=== PATIENT | female | born 1975 | race Hispanic/Latino ===

== ENCOUNTER 2024-05-21 16:06 | Emergency (ER) | payer OTHER ==
[~2024-05-21] VITALS: Ht 165.1 cm; Wt 79.4 kg
[2024-05-21] MEDS ORDERED: IOHEXOL-350 75 ML VIAL IV ONE (16:35)
[2024-05-21] MEDS: ONDANSETRON 4MG INJ IVP ONE (16:50)
[2024-05-21] MEDS: 0.9%NACL 1000ML 1,000 ML IV ONE (16:50)
[2024-05-21] MEDS: morPHINE 4 MG SYG IVP ONE (16:50)
[2024-05-21 16:51] LABS: BASOPHILS # (AUTO) 0.02 K/uL (0.00-0.20); BASOPHILS % (AUTO) 0.2 % (0.0-5.0); EOSINOPHILS # (AUTO) 0.01 K/uL (0.00-0.70); EOSINOPHILS % (AUTO) 0.1 % (0.0-8.0); HEMATOCRIT 39.9 % (36-48); IMMATURE GRANULOCYTE ABSOLUTE 0.04 K/uL (0-1); LYMPHOCYTES # (AUTO) 0.7 K/uL (1.0-4.8); LYMPHOCYTES % (AUTO) 5.6 % (21.0-51.0); MEAN CORPUSCULAR HEMOGLOBIN 28.9 pg (27.0-33.0); MEAN CORPUSCULAR HGB CONC 33.8 g/dL (32.0-36.0); MEAN CORPUSCULAR VOLUME 85.4 fL (79-99); MONOCYTES # (AUTO) 1.1 K/uL (0.1-1.0); MONOCYTES % (AUTO) 8.8 % (3.0-13.0); NEUTROPHILS # (AUTO) 10.1 K/uL (1.8-7.7); PLATELET COUNT (AUTO) 224 K/uL (130-400); RED BLOOD CELL COUNT(AUTO) 4.67 MIL/uL (4.00-5.50); RED CELL DISTRIBUTION WIDTH 12.3 % (11.0-15.5); WHITE BLOOD COUNT (AUTO) 11.9 K/uL (4.8-10.8)
[2024-05-21 17:12] LABS: ALBUMIN 3.9 g/dL (3.5-5.0); CREATININE 0.9 mg/dL (0.5-1.0); POTASSIUM 3.7 mmol/L (3.5-5.1); TOTAL PROTEIN, SERUM 7.5 g/dL (6.0-8.3)
[2024-05-21 17:16] LABS: APPEARANCE,URINE TURBID (CLEAR); BILIRUBIN,URINE NEGATIVE (NEGATIVE); COLOR,URINE DARK-BROWN (YELLOW); GLUCOSE, URINE (UA) NEGATIVE (NEGATIVE); KETONES,URINE NEGATIVE (NEGATIVE); LEUKOCYTE ESTERASE ,URINE 500 Leu/uL (NEGATIVE); NITRATE,URINE 2+ (NEGATIVE); OCCULT BLOOD,URINE LARGE (NEGATIVE); PROTEIN,URINE 100 mg/dL (NEGATIVE); UROBILINOGEN,URINE 0.2 mg/dL (0.2-1.0)
[2024-05-21 17:17] LABS: ADD UA MICROSCOPIC YES
[2024-05-21 17:21] LABS: BACTERIA,URINE FEW /HPF (None Seen); HCG,QUALITATIVE URINE NEGATIVE (NEGATIVE); MUCUS,URINE RARE LPF (None Seen); RBC,URINE TNTC /HPF (0-1); SQUAMOUS EPITHELIAL CELL,UR RARE /HPF (0-2); WBC CLUMP RARE /HPF (0-1)
[2024-05-21] MEDS: metoCLOPRAmide 10 MG/2 ML VIAL IVP ONE (18:33)
[2024-05-21] MEDS: tamSULOsin HCL 0.4 MG CAP.ER.24H PO STA (18:33)
[2024-05-21] MEDS: ketOROlac 30MG VIAL (30MG/ML) IVP ONE (18:34)
[2024-05-21] MEDS ORDERED: TAMS-1 PO (18:56)
[2024-05-21] MEDS ORDERED: ONDA-243 PO (18:56)
[2024-05-21] MEDS ORDERED: CIPR-278 PO (18:56)
[2024-05-21] MEDS ORDERED: IBUP-2077 PO (18:56)
[2024-05-21 19:29] VITALS: BP 126/68; PULSE 83; RESP 18; TEMP 98.3; O2SAT 99
[2024-05-25] MEDS ORDERED: 0.9%NACL 1000ML 1,000 ML IV ONE (13:00)
[2024-05-25] MEDS ORDERED: ketOROlac 30MG VIAL (30MG/ML) IVP ONE (13:00)
== END 2024-05-21 19:30 | disposition home or self-care (01) ==
LOC: EDH 16:06
DX: N13.2 Hydronephrosis with renal and ureteral calculous obstruction (principal); N23 Unspecified renal colic; R11.0 Nausea
CPT/HCPCS: 99285; 74177; 96374; 96375; 96361; 80053; 83690; 85025; 87086 ×2; 87186; 81001; 81025; 36415; J7030; J2405; J2270; J1885; J2765; Q9967

== ENCOUNTER 2024-05-25 12:22 | Inpatient (IN) | payer OTHER ==
[~2024-05-25] VITALS: Ht 172.7 cm; Wt 79.1 kg
[~2024-05-25 12:22] MED LIST: CIPR-278 PO; IBUP-2077 PO; ONDA-243 PO; TAMS-1 PO
[2024-05-25 13:24] LABS: BASOPHILS # (AUTO) 0.05 K/uL (0.00-0.20); BASOPHILS % (AUTO) 0.4 % (0.0-5.0); EOSINOPHILS # (AUTO) 0.02 K/uL (0.00-0.70); EOSINOPHILS % (AUTO) 0.2 % (0.0-8.0); HEMATOCRIT 35.3 % (36-48); IMMATURE GRANULOCYTE ABSOLUTE 0.07 K/uL (0-1); LYMPHOCYTES # (AUTO) 0.7 K/uL (1.0-4.8); LYMPHOCYTES % (AUTO) 5.7 % (21.0-51.0); MEAN CORPUSCULAR HEMOGLOBIN 28.7 pg (27.0-33.0); MEAN CORPUSCULAR HGB CONC 33.7 g/dL (32.0-36.0); MEAN CORPUSCULAR VOLUME 85.1 fL (79-99); MONOCYTES # (AUTO) 1.3 K/uL (0.1-1.0); MONOCYTES % (AUTO) 10.6 % (3.0-13.0); NEUTROPHILS % (AUTO) 82.5 % (40.0-77.0); PLATELET COUNT (AUTO) 152 K/uL (130-400); RED BLOOD CELL COUNT(AUTO) 4.15 MIL/uL (4.00-5.50); RED CELL DISTRIBUTION WIDTH 12.5 % (11.0-15.5); WHITE BLOOD COUNT (AUTO) 12.1 K/uL (4.8-10.8)
[2024-05-25 13:33] LABS: CREATININE 1.7 mg/dL (0.5-1.0); POTASSIUM 3.4 mmol/L (3.5-5.1)
[2024-05-25 13:38] LABS: ALBUMIN 2.6 g/dL (3.5-5.0); BILIRUBIN,TOTAL 1.4 mg/dL (0.2-1.0); TOTAL PROTEIN, SERUM 7.2 g/dL (6.0-8.3)
[2024-05-25] MEDS: CEFTRIAXONE 2GM VIAL IVPB ONE (14:04)
[2024-05-25] MEDS: ketOROlac 30MG VIAL (30MG/ML) IVP ONE (14:04)
[2024-05-25] MEDS: tamSULOsin HCL 0.4 MG CAP.ER.24H PO ONE (14:04)
[2024-05-25] MEDS: 0.9%NACL 1000ML 1,000 ML IV ONE (14:04)
[2024-05-25 14:43] LABS: APPEARANCE,URINE CLOUDY (CLEAR); BILIRUBIN,URINE NEGATIVE (NEGATIVE); COLOR,URINE LIGHT-YELLOW (YELLOW); GLUCOSE, URINE (UA) NEGATIVE (NEGATIVE); KETONES,URINE NEGATIVE (NEGATIVE); LEUKOCYTE ESTERASE ,URINE 500 Leu/uL (NEGATIVE); NITRATE,URINE NEGATIVE (NEGATIVE); OCCULT BLOOD,URINE MODERATE (NEGATIVE); PH,URINE 6.5 (5.0-8.0); PROTEIN,URINE 30 mg/dL (NEGATIVE); UROBILINOGEN,URINE 0.2 mg/dL (0.2-1.0)
[2024-05-25 14:54] LABS: ADD UA MICROSCOPIC YES
[2024-05-25 14:57] LABS: BACTERIA,URINE MOD /HPF (None Seen); WBC,URINE 26-50 /HPF (0-1)
[2024-05-25] MEDS: POTASSIUM BICARB/CIT AC 25 MEQ TABLET.EFF PO ONE (15:30)
[2024-05-25] MEDS: 0.9%NACL 1000ML 1,000 ML IV SCH (15:30)
[2024-05-25] MEDS ORDERED: MAGNESIUM 2GM PREMIX 50ML 50 ML IV PRN (15:30)
[2024-05-25] MEDS: CEFTRIAXONE 2GM VIAL IVPB SCH (15:30)
[2024-05-25] MEDS: acetaMINOPHEN 325 MG TAB PO PRN (19:11)
[2024-05-25 21:00] VITALS: TEMP 98.5
[2024-05-25 23:25] VITALS: BP 109/70; PULSE 83; RESP 20; TEMP 98.5; O2SAT 98
[2024-05-26] VITALS (9 sets, daily range): BP systolic 107–133; BP diastolic 63–94; PULSE 68–101; RESP 19–20; TEMP 98.2–102.5; O2SAT 98–100
[2024-05-26] MEDS: acetaMINOPHEN 325 MG TAB PO PRN (03:44)
[2024-05-26 05:06] LABS: HEMATOCRIT 28.4 % (36-48); MEAN CORPUSCULAR HEMOGLOBIN 28.4 pg (27.0-33.0); MEAN CORPUSCULAR HGB CONC 34.5 g/dL (32.0-36.0); MEAN CORPUSCULAR VOLUME 82.3 fL (79-99); RED BLOOD CELL COUNT(AUTO) 3.45 MIL/uL (4.00-5.50); RED CELL DISTRIBUTION WIDTH 12.4 % (11.0-15.5); WHITE BLOOD COUNT (AUTO) 7.5 K/uL (4.8-10.8)
[2024-05-26 05:39] LABS: ALBUMIN 1.9 g/dL (3.5-5.0); BILIRUBIN,TOTAL 0.8 mg/dL (0.2-1.0); CREATININE 1.5 mg/dL (0.5-1.0); MAGNESIUM 1.8 mg/dL (1.80-2.40); TOTAL PROTEIN, SERUM 5.7 g/dL (6.0-8.3)
[2024-05-26 05:46] LABS: POTASSIUM 2.7 mmol/L (3.5-5.1)
[2024-05-26] MEDS: POTASSIUM CHLORIDE 20MEQ/100ML 100 ML IV PRN (05:51)
[2024-05-26] MEDS: POTASSIUM CHLORIDE 10% ELIXIR 20 MEQ/15 ML UDCUP PO PRN (05:52)
[2024-05-26] MEDS: KCL 20 MEQ ERTAB PO PRN (06:00)
[2024-05-26] MEDS: tamSULOsin HCL 0.4 MG CAP.ER.24H PO SCH (09:15)
[2024-05-27] VITALS (9 sets, daily range): BP systolic 122–140; BP diastolic 59–82; PULSE 67–80; RESP 19–20; TEMP 98.1–98.9; O2SAT 96–100
[2024-05-27] MEDS: morPHINE 2 MG SYG IVP PRN (02:12)
[2024-05-27 05:51] LABS: HEMATOCRIT 28.8 % (36-48); MEAN CORPUSCULAR HEMOGLOBIN 29.1 pg (27.0-33.0); MEAN CORPUSCULAR HGB CONC 34.4 g/dL (32.0-36.0); MEAN CORPUSCULAR VOLUME 84.7 fL (79-99); RED BLOOD CELL COUNT(AUTO) 3.4 MIL/uL (4.00-5.50); RED CELL DISTRIBUTION WIDTH 12.8 % (11.0-15.5); WHITE BLOOD COUNT (AUTO) 6.6 K/uL (4.8-10.8)
[2024-05-27 06:12] LABS: CREATININE 1.1 mg/dL (0.5-1.0); POTASSIUM 3.9 mmol/L (3.5-5.1)
[2024-05-27] MEDS ORDERED: MEROPENEM 1 GM in 0.9%NACL 100ML 100 ML IVPB SCH (10:00)
[2024-05-27] MEDS ORDERED: COMPOUND IV MISC 1 EACH IVSOLN MISC PRN (10:30)
[2024-05-27] MEDS: MEROPENEM 1 GM in 0.9%NACL 100ML 100 ML IVPB SCH (12:51)
[2024-05-28] VITALS (7 sets, daily range): BP systolic 123–141; BP diastolic 72–87; PULSE 64–83; RESP 18–19; TEMP 97.4–99.2; O2SAT 98
[2024-05-28 06:06] LABS: HEMATOCRIT 32.1 % (36-48); MEAN CORPUSCULAR HEMOGLOBIN 28.1 pg (27.0-33.0); MEAN CORPUSCULAR HGB CONC 33.6 g/dL (32.0-36.0); MEAN CORPUSCULAR VOLUME 83.6 fL (79-99); RED BLOOD CELL COUNT(AUTO) 3.84 MIL/uL (4.00-5.50); RED CELL DISTRIBUTION WIDTH 12.9 % (11.0-15.5); WHITE BLOOD COUNT (AUTO) 6.9 K/uL (4.8-10.8)
[2024-05-28 06:12] LABS: CREATININE 1.1 mg/dL (0.5-1.0); POTASSIUM 3.6 mmol/L (3.5-5.1)
[2024-05-29 03:12] VITALS: O2SAT 99
[2024-05-29 04:00] VITALS: BP 135/75; PULSE 65; RESP 19; TEMP 98.7
[2024-05-29 05:29] LABS: HEMATOCRIT 31.1 % (36-48); MEAN CORPUSCULAR HEMOGLOBIN 27.8 pg (27.0-33.0); MEAN CORPUSCULAR HGB CONC 32.5 g/dL (32.0-36.0); MEAN CORPUSCULAR VOLUME 85.7 fL (79-99); RED BLOOD CELL COUNT(AUTO) 3.63 MIL/uL (4.00-5.50); WHITE BLOOD COUNT (AUTO) 6.2 K/uL (4.8-10.8)
[2024-05-29 05:38] LABS: POTASSIUM 3.6 mmol/L (3.5-5.1)
[2024-05-29 08:21] VITALS: BP 128/89; PULSE 77; RESP 16; TEMP 98.5
[2024-05-29 09:00] VITALS: O2SAT 97
[2024-05-29 12:40] VITALS: BP 137/93; PULSE 76; RESP 16; TEMP 98.6
== END 2024-05-29 18:15 | disposition home or self-care (01) | DRG 872 ==
LOC: EDH 12:22 → EDHIP 15:02 → 3CH 23:25
PROVIDERS: ADMIT Hospitalist; ATTEND Hospitalist
DX: A41.51 Sepsis due to Escherichia coli [E. coli] (principal); N17.9 Acute kidney failure, unspecified; E44.0 Moderate protein-calorie malnutrition; N13.6 Pyonephrosis; Z16.12 Extended spectrum beta lactamase (ESBL) resistance; Z16.24 Resistance to multiple antibiotics; E87.6 Hypokalemia; E66.9 Obesity, unspecified; D64.9 Anemia, unspecified; Z98.51 Tubal ligation status; Z68.27 Body mass index [BMI] 27.0-27.9, adult; Z80.7 Family history of other malignant neoplasms of lymphoid, hematopoietic and related tissues; Z82.49 Family history of ischemic heart disease and other diseases of the circulatory system; Z83.3 Family history of diabetes mellitus
CPT/HCPCS: 36415; 74176; 80048; 80053; 81001; 83605; 83735; 85025; 85027; 87040; 87086; 87186; 96365; 96375; G0378; J0696; J1885; J2185; J2270; J3480; J7030